=== PATIENT | male | born 1945 | race Caucasian/White ===

== ENCOUNTER 2018-03-14 15:27 | Inpatient (IN) | payer MEDICARE ==
[~2018-03-14 15:27] MED LIST: Aspirin 81 mg CHEW TAB* 81 MG TAB.CHEW PO ONE
[2018-03-14] MEDS ORDERED: NS 0.9% 1000 ML** 1,000 ML IV ONE (16:00)
[2018-03-14 16:18] LABS: ABS Basophils 0.1 10^3/ul (0-0.2); ABS Eosinophils 0.2 10^3/ul (0-0.6); ABS Lymphocytes 2.9 10^3/ul (1.0-4.8); ABS Monocytes 0.8 10^3/ul (0-0.8); ABS Neutrophils 6.8 10^3/ul (1.5-7.7); ABS Nucleated RBC 0 10^3/ul; Eosinophil % 2.1 %; Hematocrit 49 % (42-52); Hemoglobin 16.7 g/dl (14.0-18.0); Lymphocyte % 26.5 %; Mean Corpuscular HGB Conc 34 g/dl (31-36); Mean Corpuscular Hemoglobin 30 pg (27-31); Mean Corpuscular Volume 88 fL (80-94); Mean Platelet Volume 9.1 fL (7.4-10.4); Nucleated Red Blood Cells % 0; Platelet Count 258 10^3/ul (150-450); Red Blood Count 5.63 10^6/ul (4.00-5.40); Red Cell Distribution Width 14 % (10.5-15); White Blood Count 10.8 10^3/ul (3.5-10.8)
[2018-03-14 16:27] LABS: Activated Partial Thrombo Time 26.9 seconds (26.0-36.3); INR 0.78 (0.77-1.02)
[2018-03-14 16:30] LABS: Albumin 4.6 g/dL (3.2-5.2); Albumin/Globulin Ratio 1.5 (1-3); BUN/Creatinine Ratio 13.7 (8-20); Calcium 9.6 mg/dL (8.6-10.3); EGFR African American 74.1 (>60); EGFR Non-African American 61.3 (>60); HDL Cholesterol 60.7 mg/dL; Potassium 3.7 mmol/L (3.5-5.0); Total Bilirubin 0.7 mg/dL (0.2-1.0); Total Protein 7.6 g/dL (6.4-8.9)
--- NOTE | 2018-03-14 16:54 | ED ---
Neurological HPI - HPI Summary HPI Summary: This patient is a 72 year old male presenting to the emergency room with a cc of a possible TIA. He began having sclera bleeding in one half of his eye 3 days ago but yesterday the blood spread to the whole eye. Today at 1200 he began having a headache around this eye accompanied by expressive aphasia that lasted an hour. He did have a TIA in September of last year. He is still having a DOWNS that he rates 6/10 in severity. He reports all TIA sx have resolved and that at the time his mental state felt similar to his prior TIA. The only blood thinner he is on is 81 mg ASA daily. He does have DDD in C2, C3, and C4. - History of Current Complaint Chief Complaint: EDHeadache Stated Complaint: HEADACHE/ LT EYE REDNESS Time Seen by Provider: 03/14/18 15:54 Hx Obtained From: Patient Onset/Duration: Resolved Timing: Intermittent Episodes Lasting: - 1 hour Onset Severity: Moderate Current Severity: Mild Pain Intensity: 6 Pain Scale Used: 0-10 Numeric Syncope Context: Loss of Consciousness: No Associated Signs and Symptoms: Positive: Negative - fever. Negative: Recent Illness - Allergy/Home Medications Allergies/Adverse Reactions: Allergies Allergy/AdvReac Type Severity Reaction Status Date / Time No Known Allergies Allergy Verified 12/28/17 13:57 Home Medications: Home Medications Aspirin 81 mg CHEW TAB* [Aspirin Low Dose TAB*] 81 mg PO DAILY 03/14/18 [ History Confirmed 03/14/18] PMH/Surg Hx/FS Hx/Imm Hx Endocrine/Hematology History: Denies: Hx Diabetes, Hx Thyroid Disease Cardiovascular History: Denies: Hx Hypertension, Hx Pacemaker/ICD Respiratory History: Reports: Hx Asthma - USES INHALER, Hx Sleep Apnea, Other Respiratory Problems/Disorders - HX PNEUMONIA 6 TIMES PAST 8-10 YEARS Comment Only: Hx Chronic Obstructive Pulmonary Disease (COPD) - EXERCISED INDUCED PER PT GI History: Reports: Hx Diverticulosis - 1959 surgery, Hx Gastroesophageal Reflux Disease - takes Omeprazole Denies: Hx Ulcer History: Reports: Hx Benign Prostatic Hyperplasia, Hx Kidney Stones - LEFT ( 4 PIECES NOW) Denies: Hx Renal Disease Musculoskeletal History: Reports: Hx Arthritis, Hx Back Problems - Neck pain, current; Laser spine Surgery, resolved, Hx Tendonitis - RIGHT WRIST Sensory History: Reports: Hx Contacts or Glasses - GLASSES Denies: Hx Hearing Aid Opthamlomology History: Reports: Hx Contacts or Glasses - GLASSES Neurological History: Reports: Hx Headaches, Hx Transient Ischemic Attacks (TIA ) - 10/13: spent 3 nights at [facility] Comment Only: Other Neuro Impairments/Disorders - PAIN CLINIC PT Psychiatric History: Denies: Hx Panic Disorder, Hx Suicide Attempt - Cancer History Cancer Type, Location and Year: Skin cancer, forehead, resolved with Surgery Hx Chemotherapy: No Hx Radiation Therapy: No - Surgical History Surgery Procedure, Year, and Place: 1958 ILIECTOMY AND DIVERTICULITIS REPAIR, [place]. 1977 RIGHT KNEE-[facility],. 2006 LAMINECTOMY, [place]. 2006 EUA, TRANSANAL RECTAL POLYPECTOMY, [facility] [place]. 2008 LASER SPINE - LUMBAR REGION, [facility]. 2009 RIGHT TOTAL KNEE REPLACEMENT, [place]. 04/2011 LEFT WRIST GANGLION CYST EXCISION, [facility] [place]. 05/2011 CYSTOSCOPY RIGHT LITHOTRIPSY, STENT INSERTION, [facility] [place]. 03/2015 LEFT TOTAL KNEE REPLACEMENT, [place]. 11/27/2015 [place] LITHOTRIPSY LEFT URETERAL STENT INSERTION. 12/19/2015 LEFT CYSTOSCOPY , STONE EXTRACTION, LASER LITHOTRIPSY, LEFT STENT EXCHANGE, [facility] [place] Hx Anesthesia Reactions: Yes - 12/19/2015- SAID HE WAS ACTING "GOOFY" FOR HOURS AFTERWARDS Infectious Disease History: No Infectious Disease History: Reports: Hx of Known/Suspected MRSA - 2 years ago, unknown Denies: Hx Hepatitis, Hx Human Immunodeficiency Virus (HIV), History Other Infectious Disease, Traveled Outside the in Last 30 Days - Family History Known Family History: Positive: Hypertension Negative: Respiratory Disease - Social History Alcohol Use: Daily Alcohol Amount: 1-2daily Substance Use Type: Reports: None Smoking Status (MU): Never Smoked Tobacco Review of Systems Negative: Fever Positive: Other - see hpi Neurological: Other - aphasia Positive: Headache All Other Systems Reviewed And Are Negative: Yes Physical Exam - Summary Physical Exam Summary: Appearance: Well appearing, no pain distress Skin: warm, dry, reflects adequate perfusion Head/face: normal Eyes: EOMI, MANUEL, there is a subconjunctival hemorrhage on the left. ENT: normal Neck: supple, non-tender Respiratory: CTA, breath sounds present Cardiovascular: RRR, pulses symmetrical Abdomen: non-tender, soft Musculoskeletal: normal, strength/ROM intact Neuro: normal, sensory motor intact, A&Ox3 Triage Information Reviewed: Yes Vital Signs On Initial Exam: Initial Vitals Temp Pulse Resp BP Pulse Ox 97.8 F 73 18 162/105 97 03/14/18 15:33 03/14/18 15:33 03/14/18 15:33 03/14/18 15:33 03/14/18 15:33 Vital Signs Reviewed: Yes - Jasbir Coma Scale Best Eye Response: 4 - Spontaneous Best Motor Response: 6 - Obeys Commands Best Verbal Response: 5 - Oriented Coma Scale Total: 15 Diagnostics - Vital Signs Vital Signs Temp Pulse Resp BP Pulse Ox 03/14/18 16:17 73 12 172/99 94 03/14/18 16:15 80 19 97 03/14/18 16:10 172/105 03/14/18 15:33 97.8 F 73 18 162/105 97 - Laboratory Lab Results: Lab Results 03/14/18 03/14/18 03/14/18 Range/Units 15:55 15:55 15:55 WBC 10.8 (3.5-10.8) 10^3/ul RBC 5.63 H (4.00-5.40) 10^6/ul Hgb 16.7 (14.0-18.0) g/dl Hct 49 (42-52) % MCV 88 (80-94) fL MCH 30 (27-31) pg MCHC 34 (31-36) g/dl RDW 14 (10.5-15) % Plt Count 258 (150-450) 10^3/ul MPV 9.1 (7.4-10.4) fL Neut % (Auto) 63.1 % Lymph % (Auto) 26.5 % Charles % (Auto) 7.0 % Eos % (Auto) 2.1 % Baso % (Auto) 1.3 % Absolute Neuts (auto) 6.8 (1.5-7.7) 10^3/ul Absolute Lymphs (auto) 2.9 (1.0-4.8) 10^3/ul Absolute Monos (auto) 0.8 (0-0.8) 10^3/ul Absolute Eos (auto) 0.2 (0-0.6) 10^3/ul Absolute Basos (auto) 0.1 (0-0.2) 10^3/ul Absolute Nucleated RBC 0 10^3/ul Nucleated RBC % 0 INR (Anticoag Therapy) 0.78 (0.77-1.02) APTT 26.9 (26.0-36.3) seconds Sodium 138 (135-145) mmol/L Potassium 3.7 (3.5-5.0) mmol/L Chloride 102 (101-111) mmol/L Carbon Dioxide 29 (22-32) mmol/L Anion Gap 7 (2-11) mmol/L BUN 16 (6-24) mg/dL Creatinine 1.17 (0.67-1.17) mg/dL Est GFR ( Amer) 74.1 (>60) Est GFR (Non-Af Amer) 61.3 (>60) BUN/Creatinine Ratio 13.7 (8-20) Glucose 106 H (70-100) mg/dL POC Glucose (mg/dL) (70-100) mg/dL Lactic Acid (0.5-2.0) mmol/L Calcium 9.6 (8.6-10.3) mg/dL Total Bilirubin 0.70 (0.2-1.0) mg/dL AST 28 (13-39) U/L ALT 26 (7-52) U/L Alkaline Phosphatase 82 (34-104) U/L Troponin I 0.00 (<0.04) ng/mL Total Protein 7.6 (6.4-8.9) g/dL Albumin 4.6 (3.2-5.2) g/dL Globulin 3.0 (2-4) g/dL Albumin/Globulin Ratio 1.5 (1-3) Triglycerides 276 mg/dL Cholesterol 229 mg/dL LDL Cholesterol 113 mg/dL HDL Cholesterol 60.7 mg/dL 03/14/18 03/14/18 Range/Units 15:55 16:18 WBC (3.5-10.8) 10^3/ul RBC (4.00-5.40) 10^6/ul Hgb (14.0-18.0) g/dl Hct (42-52) % MCV (80-94) fL MCH (27-31) pg MCHC (31-36) g/dl RDW (10.5-15) % Plt Count (150-450) 10^3/ul MPV (7.4-10.4) fL Neut % (Auto) % Lymph % (Auto) % Charles % (Auto) % Eos % (Auto) % Baso % (Auto) % Absolute Neuts (auto) (1.5-7.7) 10^3/ul Absolute Lymphs (auto) (1.0-4.8) 10^3/ul Absolute Monos (auto) (0-0.8) 10^3/ul Absolute Eos (auto) (0-0.6) 10^3/ul Absolute Basos (auto) (0-0.2) 10^3/ul Absolute Nucleated RBC 10^3/ul Nucleated RBC % INR (Anticoag Therapy) (0.77-1.02) APTT (26.0-36.3) seconds Sodium (135-145) mmol/L Potassium (3.5-5.0) mmol/L Chloride (101-111) mmol/L Carbon Dioxide (22-32) mmol/L Anion Gap (2-11) mmol/L BUN (6-24) mg/dL Creatinine (0.67-1.17) mg/dL Est GFR ( Amer) (>60) Est GFR (Non-Af Amer) (>60) BUN/Creatinine Ratio (8-20) Glucose (70-100) mg/dL POC Glucose (mg/dL) 95 (70-100) mg/dL Lactic Acid 0.7 (0.5-2.0) mmol/L Calcium (8.6-10.3) mg/dL Total Bilirubin (0.2-1.0) mg/dL AST (13-39) U/L ALT (7-52) U/L Alkaline Phosphatase (34-104) U/L Troponin I (<0.04) ng/mL Total Protein (6.4-8.9) g/dL Albumin (3.2-5.2) g/dL Globulin (2-4) g/dL Albumin/Globulin Ratio (1-3) Triglycerides mg/dL Cholesterol mg/dL LDL Cholesterol mg/dL HDL Cholesterol mg/dL Result Diagrams: 03/14/18 15:55 03/14/18 15:55 Lab Statement: Any lab studies that have been ordered have been reviewed, and results considered in the medical decision making process. - Radiology CXR Radiology Interpretation Completed By: Radiologist Summary of Radiographic Findings: NO ACTIVE CARDIOPULMONARY DISEASE IS NOTED. ED physician has reviewed this radiology report - CT CT Head CT Interpretation Completed By: Radiologist Summary of CT Findings: No intracranial mass or hemorrhage is noted. ED physician has reviewed this radiology report CTA head CT Interpretation Completed By: Radiologist Summary of CT Findings: Minimal atherosclerosis without dissection, aneurysm, or flow-limiting lesion. in the extracranial carotid systems or vertebral arteries. ED physician has reviewed this radiology report - EKG 1623 Cardiac Rate: Other Rate EKG Rhythm: Atrial Fibrillation - at [address] Segment: Non-Specific NIH Scale - NIH Scale Level of Consciousness: Alert/Keenly Responsive Ask Patient the Month and His/Her Age: Both Correct Ask Pt to Open/Close Eyes and Tugboat Operator/Release Non-Paretic Hand: Both Correctly Best Gaze (Only Horizontal Eye Movement): Normal Visual Field Testing: No Visual Loss Facial Paresis-Pt to Smile & Close Eyes or Grimace Symmetry: Normal/Symmetrical Motor Function - Right Arm: No Drift-Holds 10 Seconds Motor Function - Left Arm: No Drift-Holds 10 Seconds Motor Function - Right Leg: No Drift-Holds 10 Seconds Motor Function - Left Leg: No Drift-Holds 10 Seconds Limb Ataxia-Must be out of Proportion to Weakness Present: Absent Sensory (Use Pinprick to Test Arms/Legs/Trunk/Face): Normal Best Language (Describe Picture, Name Items): No Aphasia Dysarthria (Read Several Words): Normal Extinction and Inattention: No Abnormality Total Score: 0 Course/Dx - Differential Dx Differential Diagnoses Neuro: Positive: Cerebrovascular Accident, Dysrhythmia, Intracranial Bleed, Transient Ischemic Attack - Diagnoses Provider Diagnoses: TIA (transient ischemic attack) - Physician Notifications Discussed Care Of Patient With: Kwabena Gr Time Discussed With Above Provider: 16:57 Instructed by Provider To: Admit As Inpatient - I discussed patient care with Dr. Salas as well and he suggested ordering a CTA prior to admission. - Critical Care Time Critical Care Time: 30-74 min Discharge - Sign-Out/Discharge Documenting (check all that apply): Patient Departure - admitted - Discharge Plan Condition: Fair Disposition: ADMITTED TO [facility] Referrals: Flako Bañuelos SEIS[facility] [employer]OTTER [Primary Care Provider] - - Billing Disposition and Condition Condition: FAIR Disposition: Admitted to [facility] - Attestation Statements Document Initiated by Scribe: Yes Documenting Scribe: Perez Sanders Provider For Whom Scribe is Documenting (Include Credential): Pablito Dowd Attestation: IPerez , scribed for Pablito Medina MD on 03/14/18 at 2011. Scribe Documentation Reviewed: Yes Provider Attestation: The documentation as recorded by the Perez dowd accurately reflects the service I personally performed and the decisions made by Pablito almanza MD Status of Scribe Document: Viewed
[2018-03-14] MEDS ORDERED: Iohexol 350* (CONTRAST) 500 ML MDV IV ONE (17:04)
[2018-03-14 18:03] LABS: Urine Appearance Clear; Urine Bilirubin Negative (Negative); Urine Blood Negative (Negative); Urine Color Yellow; Urine Glucose Negative (Negative); Urine Ketones Negative (Negative); Urine Nitrite Negative (Negative); Urine Protein Negative (Negative); Urine Urobilinogen Negative (Negative)
[2018-03-14] MEDS ORDERED: Acetaminophen TAB* 325 MG PO PRN (19:37)
[2018-03-14] MEDS ORDERED: Ondansetron INJ* 2 MG/ML VIAL IV PRN (19:37)
[2018-03-14] MEDS ORDERED: Naproxen TAB* 250 MG PO ONE (19:55)
[2018-03-14] MEDS ORDERED: Aspirin 81 mg CHEW TAB* 81 MG TAB.CHEW PO ONE (20:00)
[2018-03-14] MEDS ORDERED: Aspirin 81 mg CHEW TAB* 81 MG TAB.CHEW PO SCH (20:00)
[2018-03-14] MEDS: Heparin VIAL(*) 5000 UNITS/ML VIAL (FIVE THOUSAND) SUBCUT SCH (20:44)
--- NOTE | 2018-03-15 00:04 | HP ---
CC: Dr. Williamson; Dr. Salas * HISTORY AND PHYSICAL: DATE OF ADMISSION: 03/14/18 PRIMARY CARE PROVIDER: Dr. Williamson. OTHER PROVIDERS: Dr. Salas, neurology in consultation. ATTENDING PHYSICIAN: Waleska Dyson DO * (dictated by Connie Ledesma, CLOTILDE) CHIEF COMPLAINT: 1. Aphasia. 2. Headache. HISTORY OF PRESENT ILLNESS: Mr. Torres is a 72-year-old male with a past medical history significant for possible TIA in September 2017, DDD, asthma, sleep apnea, COPD, GERD, BPH, kidney stones, arthritis; who presented to the emergency department today with complaints of an episode of aphasia and left- sided headache. While in the emergency room, the patient was noted to be hypertensive with a blood pressure of 172/99. In addition, the patient had a brain CT, which reveals no intracranial mass or hemorrhage. He also had CTA of the head and neck, which showed no dissection, aneurysm, or flow limiting lesion. He was noted to have minimal atherosclerosis without dissection, aneurysm, or flow limiting lesion in the extracranial carotid systems of vertebral arteries. He had a CBC, which was unremarkable. He had a coag panel , which was unremarkable. He also had a CMP, which was unremarkable other than a glucose of 106. He also had a troponin that was 0.00 and a lipid panel. Due to the patient's history of TIA and presenting complaints, the hospitalists were asked to evaluate for admission. On my assessment of the patient, he reports that about 3 days ago, he started noticing blood in the sclera of his left eye after straining to have a bowel movement. He reports this happens occasionally. He believes that the bleeding in the sclera became worse after shovelling also. Then, today around 11:30, he was speaking to friends at [employer] regarding a friend who was hospitalized and he found himself unable to articulate and find the appropriate words. He was able to understand the others completely, but could not communicate effectively. He then went home to his who mentioned she also noted this inability to find correct words with ease. He was able to say some things, but finding the right words were difficult. and the patient deny any noticeable focal deficits including garbled speech, unilateral weakness, unsteady gait, asymmetrical smile, or gaze. The patient reports that this inability to find words lasted approximately an hour, and near the end that hour , he started to have a severe headache on the left side of his head around his left eye and in the orbit of his eye. He reports the pain was 7/10. Due to this headache and a previous history of a similar episode, the patient presented to the emergency department. As per the previous history of similar episode, the patient reports that in September 2017, he was driving home from the [employer] by himself when he found it difficult to drive and manage the air conditioning in his car. He continues to drive without event, but as he became more concerned about his symptoms, he stopped at a [employer] and told the staff to call 911. He said it did take him some time to find the words "call 911," which is similar to this recent episode. He reports that he was taken by ambulance from [facility] to [facility] for further evaluation. He states that multiple tests were completed without finding. He reports that he was discharged and told it might have been a TIA. From the limited records I can see in [facility], there is mention of MRI, echo, EEG that were unremarkable. I have requested records from [facility]. Due to the patient's history of a similar episode and current symptomatology, he will be admitted overnight for further observation on telemetry. PAST MEDICAL HISTORY: 1. TIA in September 2017. 2. Degenerative disk disease. 3. Asthma. 4. Sleep apnea. 5. Recurrent pneumonia. 6. COPD exacerbation (with exercise). 7. GERD. 8. BPH. 9. Kidney stones. 10. Arthritis. PAST SURGICAL HISTORY: 1. Ileectomy and diverticulitis repair. 2. Right knee medial meniscus tear. 3. Laminectomy. 4. Transrectal polypectomy. 5. Laser spine lumbar region. 6. Total knee replacement, right. 7. Left wrist ganglion cyst excision. 8. Cystoscopy, right lithotripsy. 9. Left total knee replacement. 10. Shock wave lithotripsy, left ureteral stent insertion. 11. Left cystoscopy, stone extraction, laser lithotripsy, left stent exchange. ALLERGIES: No known drug allergies. FAMILY HISTORY: The patient's family history is positive for hypertension. SOCIAL HISTORY: The patient denies smoking. The patient reports 1 to 2 drinks daily. The patient denies drugs. The patient lives at home with his and is independent of ADLs. REVIEW OF SYSTEMS: The patient reports left-sided headache, which is now more in temporal region than around the eye. He rates his headache as 6/10. The patient denies difficulty finding words. The patient denies dizziness. The patient denies visual changes. The patient denies weakness or focal deficits. The patient denies chest pain, shortness of breath, nausea, vomiting, diarrhea, fever, chills. A 14-point review of systems was completed and all others were negative. PHYSICAL EXAMINATION GENERAL: Mr. Torres is a well-developed man, sitting in bed, in no acute distress. Appears his stated age. VITAL SIGNS: BP 166/93, O2 saturation 98% on room air, RR 16, HR 67, temp 97.8. HEENT: Visual espinal grossly intact. PERRLA. EOMs intact. Right sclera within normal limits. Left sclera is noted to have hemorrhage. Hearing is grossly intact. External ears and nose within normal limits. Oral mucosa is moist without lesions. Tonsils without erythema or exudate. Pharynx is clear. NECK: Limited range of motion due to pain. The patient is receiving injections for this pain. No lymphadenopathy. RESPIRATORY: Symmetrical chest expansion. No accessory muscle use. LUNGS: Clear to auscultation. No rhonchi, wheezes, or rubs. CV: Regular rate and rhythm. S1, S2 present. No murmurs, rubs, or gallops. ABDOMEN: Soft, nontender to palpation. Bowel sounds are normoactive. EXTREMITIES: Skin is warm and smooth bilaterally. No edema. No clubbing or cyanosis. Pedal pulses 2+ bilaterally. MUSCULOSKELETAL: Full range of motion. No deformities. NEURO: Awake, alert, and oriented x4. Cranial nerves II through XII intact. Moves all extremities well. Motor strength is 5/5 in upper and lower extremities bilaterally. No drift noted. Coordination intact. Sensory intact. SKIN: Grossly intact without lesions. DIAGNOSTIC STUDIES/LABORATORY DATA: WBC 10.8, hemoglobin 16.7, hematocrit 49, platelets 258. INR 0.78. APTT 26.9. Sodium 138, potassium 3.7, chloride 102, carbon dioxide 29, BUN 16, creatinine 1.17, glucose 106. Lactic acid 0.7. Calcium 9.6. Total bilirubin 0.70, AST 28, ALT 26, alk phos 82. Troponin 0.00. Triglycerides 276, cholesterol 229, LDL is 113, HDL is 60.7. ASSESSMENT AND PLAN: Mr. Torrse is a 72-year-old male with a past medical history significant for transient ischemic attack, degenerative disk disease, asthma, sleep apnea, chronic obstructive pulmonary disease, gastroesophageal reflux disease, BPH, kidney stones; who presented to the emergency department today with an hour-long episode of aphasia and subsequent headache. Due to the patient's history and presenting concerns, he will be admitted to observation for: 1. Expressive aphasia: On the differential includes a TIA. An MRI has been ordered for the morning. The patient has been given 81 mg of aspirin here in the ER, as he has already taken 3 baby aspirin prior to arrival. The patient will also receive a full dose of aspirin tomorrow. The patient will have neuro checks q.2 hours. The patient will be placed on telemetry. The patient passed in our swallowing eval here in the emergency department. As previously mentioned, the patient had a CTA and a brain CT, which were unremarkable. Neurology has been consulted and we appreciate their input and they will be seeing the patient tomorrow. 2. Headache: Once again on the differential includes TIA. See plans above. In addition, a sed rate has been ordered to evaluate for temporal arteritis. The patient does have some mild tenderness to palpation on the left temporal artery. 3. Degenerative disk disease: The patient can be provided pain meds as needed. He is undergoing injections in his spine. 4. Asthma. The patient will have albuterol inhaler as needed. 5. Sleep apnea. I will ask the patient's to bring his CPAP from home. 6. Chronic obstructive pulmonary disease. The patient is not in exacerbation. I will reorder his Dulera as same from home. 7. Gastroesophageal reflux disease: The patient does not have currently have symptoms of GERD, but I will reorder his omeprazole as same as at home. 8. Benign prostatic hypertrophy. The patient does take Flomax at home, and we will reorder that while he is hospitalized. 9. Kidney stones: He is not currently experiencing symptoms of a kidney stone. 10. Arthritis. We will monitor need for pain medication. Otherwise, he is to follow up with his primary care physician. 11. FEN: As previously mentioned, the patient did pass swallow eval; therefore , he would be given a regular diet. 12. Code status: The patient is a full code. 13. DVT prophylaxis: Based on the DVT risk assessment, the patient is moderate risk. I will order subcu heparin q.12 hours. TIME SPENT: Approximately 60 minutes were spent on this admission; greater than half time was spent [id number] with the patient and obtaining my history and performing physical exam and reviewing the plan of care. The case has been reviewed by my attending, Dr. Dyson, who agrees with my plan. CONNIE LEDESMA, TRANSITIONAL STUDIES INSTRUCTOR [id number]/CPS #: [id number]
[2018-03-15] MEDS: Mometasone/Formoter 100/5 MDI INH SCH ×3 (00:13→20:46)
[2018-03-15 06:22] LABS: ABS Basophils 0.1 10^3/ul (0-0.2); ABS Eosinophils 0.3 10^3/ul (0-0.6); ABS Lymphocytes 3.3 10^3/ul (1.0-4.8); ABS Monocytes 0.7 10^3/ul (0-0.8); ABS Neutrophils 4.9 10^3/ul (1.5-7.7); ABS Nucleated RBC 0 10^3/ul; Eosinophil % 3.1 %; Hematocrit 44 % (42-52); Lymphocyte % 35.4 %; Mean Corpuscular HGB Conc 34 g/dl (31-36); Mean Corpuscular Hemoglobin 30 pg (27-31); Mean Corpuscular Volume 88 fL (80-94); Mean Platelet Volume 9.1 fL (7.4-10.4); Nucleated Red Blood Cells % 0.1; Platelet Count 208 10^3/ul (150-450); Red Blood Count 5.07 10^6/ul (4.00-5.40); Red Cell Distribution Width 14 % (10.5-15); White Blood Count 9.2 10^3/ul (3.5-10.8)
[2018-03-15 06:46] LABS: BUN/Creatinine Ratio 14.5 (8-20); Calcium 8.8 mg/dL (8.6-10.3); EGFR African American 79.6 (>60); EGFR Non-African American 65.8 (>60); HDL Cholesterol 47.1 mg/dL
[2018-03-15] MEDS: Tamsulosin CAP* 0.4 MG PO SCH (08:30)
[2018-03-15] MEDS: Heparin VIAL(*) 5000 UNITS/ML VIAL (FIVE THOUSAND) SUBCUT SCH ×2 (08:30→21:56)
[2018-03-15] MEDS: Finasteride TAB* 5 MG PO SCH (08:30)
[2018-03-15] MEDS: Pantoprazole TAB * 40 MG TAB PO SCH (08:31)
[2018-03-15] MEDS ORDERED: Aspirin TAB* 325 MG PO ONE (09:00)
--- NOTE | 2018-03-15 14:39 | PN ---
Subjective Date of Service: 03/15/18 Interval History: Pt states that he is feeling better. Headache is gone. Aphasia lasted approximately 1 hour yesterday, and has not returned. He states that a similar episode occurred in September, for which he had a full workup in [place]. He denies CP, SOB, cooper, vision changes, abd pain, n/v/d/c, LE pain or swelling, calf tenderness. He does c/o neck pain, as he has DDD in multiple cervical vertebrae; he is seeing Dr. Randall outpatient for this. Objective Active Medications: Acetaminophen (Tylenol Tab*) 650 mg PO Q4H PRN Finasteride (Proscar Tab*) 5 mg PO QAM [place] Heparin Sodium (Porcine) (Heparin Vial(*)) 5,000 units SUBCUT Q12HR [place] Mometasone Furoate/Formoterol Fumar (Dulera 100/5 Mdi*) 2 puff INH BID [place] Ondansetron HCl (Zofran Inj*) 4 mg IV Q4H PRN Pantoprazole Sodium (Protonix Tab*) 40 mg PO DAILY S[place] Tamsulosin HCl (Flomax Cap*) 0.4 mg PO QAM [place] Vital Signs: Temp Pulse Resp BP Pulse Ox 98.4 F 70 20 141/87 96 03/15/18 11:58 03/15/18 11:58 03/15/18 11:58 03/15/18 11:58 03/15/18 11:58 Oxygen Devices in Use Now: None Appearance: Pt is sitting up in bed. He appears well and is in no acute distress. Eyes: No Scleral Icterus - L eye with scleral hemorrhage , PERRLA Ears/Nose/Mouth/Throat: NL Teeth, Lips, Gums, Mucous Membranes Moist, - - B/l temporal area nontender to palpation. Without sinus tenderness. Neck: NL Appearance and Movements; NL JVP, Trachea Midline, No Thyroid Enlargement, Masses Respiratory: Symmetrical Chest Expansion and Respiratory Effort, Clear to Auscultation Cardiovascular: NL Sounds; No Murmurs; No JVD, RRR, No Edema Abdominal: NL Sounds; No Tenderness; No Distention, No Hepatosplenomegaly Neurological: Alert and Oriented x 3 Result Diagrams: 03/15/18 05:46 03/15/18 05:46 Additional Lab and Data: Lab Results 0103/14/18 03/14/18 Range/Units 15:55 15:55 15:55 WBC 10.8 (3.5-10.8) 10^3/ul RBC 5.63 H (4.00-5.40) 10^6/ul Hgb 16.7 (14.0-18.0) g/dl Hct 49 (42-52) % MCV 88 (80-94) fL MCH 30 (27-31) pg MCHC 34 (31-36) g/dl RDW 14 (10.5-15) % Plt Count 258 (150-450) 10^3/ul MPV 9.1 (7.4-10.4) fL Neut % (Auto) 63.1 % Lymph % (Auto) 26.5 % [place] % (Auto) 7.0 % Eos % (Auto) 2.1 % Baso % (Auto) 1.3 % Absolute Neuts (auto) 6.8 (1.5-7.7) 10^3/ul Absolute Lymphs (auto) 2.9 (1.0-4.8) 10^3/ul Absolute Monos (auto) 0.8 (0-0.8) 10^3/ul Absolute Eos (auto) 0.2 (0-0.6) 10^3/ul Absolute Basos (auto) 0.1 (0-0.2) 10^3/ul Absolute Nucleated RBC 0 10^3/ul Nucleated RBC % 0 INR (Anticoag Therapy) 0.78 (0.77-1.02) APTT 26.9 (26.0-36.3) seconds Sodium 138 (135-145) mmol/L Potassium 3.7 (3.5-5.0) mmol/L Chloride 102 (101-111) mmol/L Carbon Dioxide 29 (22-32) mmol/L Anion Gap 7 (2-11) mmol/L BUN 16 (6-24) mg/dL Creatinine 1.17 (0.67-1.17) mg/dL Est GFR ( Amer) 74.1 (>60) Est GFR (Non-Af Amer) 61.3 (>60) BUN/Creatinine Ratio 13.7 (8-20) Glucose 106 H (70-100) mg/dL POC Glucose (mg/dL) (70-100) mg/dL Lactic Acid (0.5-2.0) mmol/L Calcium 9.6 (8.6-10.3) mg/dL Total Bilirubin 0.70 (0.2-1.0) mg/dL AST 28 (13-39) U/L ALT 26 (7-52) U/L Alkaline Phosphatase 82 (34-104) U/L Troponin I 0.00 (<0.04) ng/mL Total Protein 7.6 (6.4-8.9) g/dL Albumin 4.6 (3.2-5.2) g/dL Globulin 3.0 (2-4) g/dL Albumin/Globulin Ratio 1.5 (1-3) Triglycerides 276 mg/dL Cholesterol 229 mg/dL LDL Cholesterol 113 mg/dL HDL Cholesterol 60.7 mg/dL 03/14/18 03/14/18 Range/Units 15:55 16:18 WBC (3.5-10.8) 10^3/ul RBC (4.00-5.40) 10^6/ul Hgb (14.0-18.0) g/dl Hct (42-52) % MCV (80-94) fL MCH (27-31) pg MCHC (31-36) g/dl RDW (10.5-15) % Plt Count (150-450) 10^3/ul MPV (7.4-10.4) fL Neut % (Auto) % Lymph % (Auto) % Sherman % (Auto) % Eos % (Auto) % Baso % (Auto) % Absolute Neuts (auto) (1.5-7.7) 10^3/ul Absolute Lymphs (auto) (1.0-4.8) 10^3/ul Absolute Monos (auto) (0-0.8) 10^3/ul Absolute Eos (auto) (0-0.6) 10^3/ul Absolute Basos (auto) (0-0.2) 10^3/ul Absolute Nucleated RBC 10^3/ul Nucleated RBC % INR (Anticoag Therapy) (0.77-1.02) APTT (26.0-36.3) seconds Sodium (135-145) mmol/L Potassium (3.5-5.0) mmol/L Chloride (101-111) mmol/L Carbon Dioxide (22-32) mmol/L Anion Gap (2-11) mmol/L BUN (6-24) mg/dL Creatinine (0.67-1.17) mg/dL Est GFR ( Amer) (>60) Est GFR (Non-Af Amer) (>60) BUN/Creatinine Ratio (8-20) Glucose (70-100) mg/dL POC Glucose (mg/dL) 95 (70-100) mg/dL Lactic Acid 0.7 (0.5-2.0) mmol/L Calcium (8.6-10.3) mg/dL Total Bilirubin (0.2-1.0) mg/dL AST (13-39) U/L ALT (7-52) U/L Alkaline Phosphatase (34-104) U/L Troponin I (<0.04) ng/mL Total Protein (6.4-8.9) g/dL Albumin (3.2-5.2) g/dL Globulin (2-4) g/dL Albumin/Globulin Ratio (1-3) Triglycerides mg/dL Cholesterol mg/dL LDL Cholesterol mg/dL HDL Cholesterol mg/dL Microbiology and Other Data: Microbiology 03/14/18 22:25 Nasal Screen MRSA (PCR) - Final Nasal Mrsa Detected Assess/Plan/Problems-Billing Assessment: Pt is a 72yom with PMHx TIA in 2018, DDD, asthma, KADEEM, COPD, GERD, BPH, kidney stones, and arthritis. He presented to the ER with aphasia and headache. - Patient Problems (1) Aphasia Comment: -Currently resolved; pt received ASA 325 today; tele shows NSR -Neurology consulted (2) Headache Comment: -Resolved; temporal area nontender to palpation; ESR WNL (3) Chronic obstructive pulmonary disease Comment: -Currently not in exacerbation -Continue Dulera (4) Benign prostatic hyperplasia Comment: -Continue tamsulosin, finasteride (5) Gastroesophageal reflux disease Comment: -Continue Pantoprazole (6) DVT prophylaxis Comment: -Continue Heparin Status and Disposition: Observation. Discharge once medically stable.
--- NOTE | 2018-03-15 20:35 | CONS ---
CONSULTATION REPORT: DATE OF CONSULT: 03/15/18 PATIENT OF: NATHAN Bolivar, and Dr. Williamson. HISTORY OF PRESENT ILLNESS: This is a 72-year-old right-handed man who presents for an episode of aphasia occurring yesterday at about 11:30. In the ER, he was asymptomatic. He had a prior episode in September 2017 of an aphasic episode that was described as a TIA, but his speech has not returned completely back to normal. Although people speaking to him cannot tell the difference, he still notes an issue. He has had no stroke. Of note, when he had knee surgery [place] 4 years ago, he was told he had atrial fibrillation, but he never saw a pst specialist for this. He has no numbness or weakness. PAST MEDICAL HISTORY: He has a history of degenerative disk disease, asthma, sleep apnea, recurrent pneumonia, COPD with exercise, GERD, BPH, kidney stones, arthritis. PAST SURGICAL HISTORY: He is status post diverticulitis repair, right knee meniscus repair, laminectomy, transrectal polypectomy, laser spine lumbar region surgery, total knee replacement to the right side, left wrist ganglion cyst excision, left knee replacement, shockwave lithotripsy, left cystoscopy. ALLERGIES: He has no known drug allergies. FAMILY HISTORY: There iss family history of hypertension. SOCIAL HISTORY: He drinks 1 to 2 drinks daily. He denies smoking or drugs. He lives at home with his . REVIEW OF SYSTEMS: Negative other than a 5-6/10 headache yesterday, it is better today. PHYSICAL EXAM: On exam, temperature 98.3, pulse 77, respirations 16, blood pressure 139/82. He is alert and oriented, with normal speech and comprehension , normal naming. Cranial nerves II through XII are intact. Fundi are benign. He had left scleral hemorrhage. Motor exam revealed normal tone, strength, coordination. Negative pronator drift. Sensation intact to light touch. Reflexes 2 and equal, downgoing toes. Chest: Clear. Cardiovascular: Regular rate and rhythm. Abdomen: Soft, with positive bowel sounds. DIAGNOSTIC STUDIES/LAB DATA: Reviewed his MRI scan, which showed no acute stroke, but it did show some small vessel ischemic disease. He also had a CTA and a CT scan. The CTA showed minimal atherosclerosis. His EKG showed atrial fibrillation. Labs include normal CBC, sed rate, normal INR, PTT, normal CMP other than glucose of 106. LDL fasting was 94. IMPRESSION AND PLAN: Arnaldo has atrial fibrillation associated with 2 episodes of aphasia and he should be anticoagulated, not on antiplatelet agents. It is possible he has small vessel ischemic disease and he may have some degree of atherosclerosis, and I would also, given the stroke, have him on a statin with a target LDL of 70. Have it called into [facility] to discuss. Thank you for sharing his case. [id number]/[facility] #: [id number] ADDENDUM: the ekg here read as atrial fib was read as artefact and I have discussed with hospitalists adn a loop recorder has been placed to evaluate for afib. We could not get records documenting the prior possible afib which was not seen by a pst specialist. THIERNO
--- NOTE | 2018-03-15 22:49 | PN ---
Hospitalist Progress Note Date of Service: 03/15/[address] Salas that he was told he had atrial fibrillation approx 4 yrs ago when being seen at [facility]. I have requested records from [facility] from this time frame. Additionally, there was an EKG completed in the ED that read Atrial Fibrillation, but was possibly due to artifact. Repeat EKG was sinus rhythm. Patient is on tele and per nurses remains in sinus rhythm. Cont tele. Given this information patient may benefit from a Loop Recorder and possible anticoagulation therapy.
--- NOTE | 2018-03-16 08:07 | PN ---
Subjective Date of Service: 03/16/18 Interval History: Pt is feeling well. Pt admits to having a "flutter" in his chest from time to time that lasts minutes, but has not had this recently. Plan for loop recorder and bubble echo, then discharge today. He denies CP, SOB, palpitations, headache, cough, fever, abdominal pain, n/v/d/c, extremity pain or weakness. Objective Active Medications: Acetaminophen (Tylenol Tab*) 650 mg PO Q4H PRN Aspirin (Aspirin Ec Tab*) 81 mg PO DAILY SASKIA Finasteride (Proscar Tab*) 5 mg PO QAM [place] Heparin Sodium (Porcine) (Heparin Vial(*)) 5,000 units SUBCUT Q12HR [place] Mometasone Furoate/Formoterol Fumar (Dulera 100/5 Mdi*) 2 puff INH BID [place] Ondansetron HCl (Zofran Inj*) 4 mg IV Q4H PRN Pantoprazole Sodium (Protonix Tab*) 40 mg PO DAILY [place] Tamsulosin HCl (Flomax Cap*) 0.4 mg PO QAM [facility] Vital Signs: Temp Pulse Resp BP Pulse Ox 97.6 F 65 16 148/89 98 03/16/18 03:56 03/16/18 03:56 03/16/18 03:56 03/16/18 03:56 03/16/18 03:56 Oxygen Devices in Use Now: None Appearance: Pt is in room ambulating. He sits up in bed for discussion and exam. He appears well and is in no acute distress. Eyes: No Scleral Icterus - L scleral hemorrhage, PERRLA Ears/Nose/Mouth/Throat: NL Teeth, Lips, Gums, Clear Oropharnyx, Mucous Membranes Moist Neck: NL Appearance and Movements; NL JVP, Trachea Midline, No Thyroid Enlargement, Masses Respiratory: Symmetrical Chest Expansion and Respiratory Effort, Clear to Auscultation Cardiovascular: NL Sounds; No Murmurs; No JVD, RRR, No Edema Abdominal: NL Sounds; No Tenderness; No Distention, No Hepatosplenomegaly Neurological: Alert and Oriented x 3, NL Gait Result Diagrams: 03/15/18 05:46 03/15/18 05:46 Additional Lab and Data: Lab Results 03/14/18 03/14/18 03/14/18 Range/Units 15:55 15:55 15:55 WBC 10.8 (3.5-10.8) 10^3/ul RBC 5.63 H (4.00-5.40) 10^6/ul Hgb 16.7 (14.0-18.0) g/dl Hct 49 (42-52) % MCV 88 (80-94) fL MCH 30 (27-31) pg MCHC 34 (31-36) g/dl RDW 14 (10.5-15) % Plt Count 258 (150-450) 10^3/ul MPV 9.1 (7.4-10.4) fL Neut % (Auto) 63.1 % Lymph % (Auto) 26.5 % [place] % (Auto) 7.0 % Eos % (Auto) 2.1 % Baso % (Auto) 1.3 % Absolute Neuts (auto) 6.8 (1.5-7.7) 10^3/ul Absolute Lymphs (auto) 2.9 (1.0-4.8) 10^3/ul Absolute Monos (auto) 0.8 (0-0.8) 10^3/ul Absolute Eos (auto) 0.2 (0-0.6) 10^3/ul Absolute Basos (auto) 0.1 (0-0.2) 10^3/ul Absolute Nucleated RBC 0 10^3/ul Nucleated RBC % 0 INR (Anticoag Therapy) 0.78 (0.77-1.02) APTT 26.9 (26.0-36.3) seconds Sodium 138 (135-145) mmol/L Potassium 3.7 (3.5-5.0) mmol/L Chloride 102 (101-111) mmol/L Carbon Dioxide 29 (22-32) mmol/L Anion Gap 7 (2-11) mmol/L BUN 16 (6-24) mg/dL Creatinine 1.17 (0.67-1.17) mg/dL Est GFR ( Amer) 74.1 (>60) Est GFR (Non-Af Amer) 61.3 (>60) BUN/Creatinine Ratio 13.7 (8-20) Glucose 106 H (70-100) mg/dL POC Glucose (mg/dL) (70-100) mg/dL Lactic Acid (0.5-2.0) mmol/L Calcium 9.6 (8.6-10.3) mg/dL Total Bilirubin 0.70 (0.2-1.0) mg/dL AST 28 (13-39) U/L ALT 26 (7-52) U/L Alkaline Phosphatase 82 (34-104) U/L Troponin I 0.00 (<0.04) ng/mL Total Protein 7.6 (6.4-8.9) g/dL Albumin 4.6 (3.2-5.2) g/dL Globulin 3.0 (2-4) g/dL Albumin/Globulin Ratio 1.5 (1-3) Triglycerides 276 mg/dL Cholesterol 229 mg/dL LDL Cholesterol 113 mg/dL HDL Cholesterol 60.7 mg/dL 03/14/18 03/14/18 Range/Units 15:55 16:18 WBC (3.5-10.8) 10^3/ul RBC (4.00-5.40) 10^6/ul Hgb (14.0-18.0) g/dl Hct (42-52) % MCV (80-94) fL MCH (27-31) pg MCHC (31-36) g/dl RDW (10.5-15) % Plt Count (150-450) 10^3/ul MPV (7.4-10.4) fL Neut % (Auto) % Lymph % (Auto) % [place] % (Auto) % Eos % (Auto) % Baso % (Auto) % Absolute Neuts (auto) (1.5-7.7) 10^3/ul Absolute Lymphs (auto) (1.0-4.8) 10^3/ul Absolute Monos (auto) (0-0.8) 10^3/ul Absolute Eos (auto) (0-0.6) 10^3/ul Absolute Basos (auto) (0-0.2) 10^3/ul Absolute Nucleated RBC 10^3/ul Nucleated RBC % INR (Anticoag Therapy) (0.77-1.02) APTT (26.0-36.3) seconds Sodium (135-145) mmol/L Potassium (3.5-5.0) mmol/L Chloride (101-111) mmol/L Carbon Dioxide (22-32) mmol/L Anion Gap (2-11) mmol/L BUN (6-24) mg/dL Creatinine (0.67-1.17) mg/dL Est GFR ( Amer) (>60) Est GFR (Non-Af Amer) (>60) BUN/Creatinine Ratio (8-20) Glucose (70-100) mg/dL POC Glucose (mg/dL) 95 (70-100) mg/dL Lactic Acid 0.7 (0.5-2.0) mmol/L Calcium (8.6-10.3) mg/dL Total Bilirubin (0.2-1.0) mg/dL AST (13-39) U/L ALT (7-52) U/L Alkaline Phosphatase (34-104) U/L Troponin I (<0.04) ng/mL Total Protein (6.4-8.9) g/dL Albumin (3.2-5.2) g/dL Globulin (2-4) g/dL Albumin/Globulin Ratio (1-3) Triglycerides mg/dL Cholesterol mg/dL LDL Cholesterol mg/dL HDL Cholesterol mg/dL Microbiology and Other Data: Microbiology 03/14/18 22:25 Nasal Screen MRSA (PCR) - Final Nasal Mrsa Detected Assess/Plan/Problems-Billing Assessment: Pt is a 72yom with PMHx TIA in 2018, DDD, asthma, KADEEM, COPD, GERD, BPH, kidney stones, and arthritis. He presented to the ER with aphasia and headache. - Patient Problems (1) Aphasia Comment: -Tele shows NSR since admission. EKG from ER shows possible AF, athough it is likely artifact, as it is regular rate and rhythm with P waves present. -ECHO with bubble, loop recordered ordered for today -Start atorvastatin; start Plavix 75; discontinue asa 81 (2) Headache Comment: -Resolved; temporal area nontender to palpation; ESR WNL (3) Chronic obstructive pulmonary disease Comment: -Currently not in exacerbation -Continue Dulera (4) Benign prostatic hyperplasia Comment: -Continue tamsulosin, finasteride (5) Gastroesophageal reflux disease Comment: -Continue Pantoprazole (6) DVT prophylaxis Comment: -Continue Heparin Status and Disposition: Observation. Discharge once medically stable.
[2018-03-16] MEDS: Mometasone/Formoter 100/5 MDI INH SCH (08:42)
[2018-03-16] MEDS ORDERED: Aspirin EC TAB* 81 MG TAB.EC PO SCH (09:00)
[2018-03-16] MEDS: Pantoprazole TAB * 40 MG TAB PO SCH (10:08)
[2018-03-16] MEDS: Tamsulosin CAP* 0.4 MG PO SCH (10:08)
[2018-03-16] MEDS: Finasteride TAB* 5 MG PO SCH (10:08)
[2018-03-16] MEDS: Heparin VIAL(*) 5000 UNITS/ML VIAL (FIVE THOUSAND) SUBCUT SCH (10:08)
[2018-03-16] MEDS ORDERED: Lidocaine 1% INJ* 10 MG/ML 30 ML SDV ONE (12:40)
--- NOTE | 2018-03-16 16:05 | ECHO ---
Patient: JULIA PATEL [facility] Rec#: [id number] : 1945 Date: 03/16/2018 Age: 72y Height: 175 cm / 68.9 in Weight: 72 kg / 158.7 lbs Sex: M BSA: 1.87 Room#: [facility] Admit Date#: 03/14/2018 Type: Inpatient Referring: Celsa David Reading: Tiburcio Lujan MD [employer] Officer: Thao Castillo RDCS,RDMS CC: Jesica Williamson MD Transthoracic Echocardiogram Indication: TIA BP: 142/89 HR: 77 Rhythm: NSR Findings History: TIA, COPD, Afib, KADEEM Technical Comments: The study quality is fair. Left Ventricle: The left ventricular chamber size is normal. Mild concentric left ventricular hypertrophy is observed. Basal interventricular septum shows moderate thickening. Global left ventricular wall motion and contractility are within normal limits. There is normal left ventricular systolic function. The estimated ejection fraction is 55-60%. There is an E to A reversal in the mitral valve flow pattern suggestive of diastolic dysfunction. Left Atrium: The left atrium is slightly dilated. Right Ventricle: The right ventricular chamber size and systolic function are within normal limits. Right Atrium: The right atrial cavity size is normal. The bubble study is negative. A patent foramen ovale is not demonstrated with color Doppler and agitated contrast. Aortic Valve: The aortic valve is trileaflet. Systolic excursion of the aortic valve is normal. There is no evidence of aortic regurgitation. There is no evidence of aortic stenosis. Mitral Valve: The mitral valve leaflets appear normal. There is a trace of mitral regurgitation. There is no evidence of mitral stenosis. Tricuspid Valve: The tricuspid valve leaflets are normal. There is trace to mild tricuspid regurgitation. No pulmonary hypertension is noted. Pulmonic Valve: The pulmonic valve appears normal. There is a trace pulmonic regurgitation. Pericardium: There is no significant pericardial effusion. Aorta: The aortic root appears normal. There is no dilatation of the aortic arch. Pulmonary Artery: The main pulmonary artery is not well visualized. Venous: The inferior vena cava appears normal in size. There is a greater than 50% respiratory change in the inferior vena cava dimension. Summary: There was not any prior study for comparison. Conclusions Mild concentric left ventricular hypertrophy is observed. Global left ventricular wall motion and contractility are within normal limits. There is normal left ventricular systolic function. The estimated ejection fraction is 55-60%. A patent foramen ovale is not demonstrated with color Doppler and agitated contrast. There is no evidence of aortic stenosis. There is a trace of mitral regurgitation. There is trace to mild tricuspid regurgitation. There is no significant pericardial effusion. Measurements Name Value Normal Range RVIDd (AP) 2D 2.7 cm (0.9 - 2.6) RVDdMajor (2D) 2.3 cm (2.2 - 4.4) RAd ISD 4CH 4.6 cm (3.4 - 4.9) RA (A4C)W 3.1 cm (2.9 - 4.6) IVSd (2D) 1.6 cm (0.6 - 1) LVPWd (2D) 1.3 cm (0.6 - 1) LVIDd (2D) 3.9 cm (3.6 - 5.4) LVIDs (2D) 2.2 cm - LV FS (2D) 44 % (25 - 45) Aortic Annulus 2 cm (1.4 - 2.6) Ao root diameter (2D) 3.2 cm (2.1 - 3.5) Ascending Ao 3.2 cm (2.1 - 3.4) Aortic arch 2.8 cm (1.8 - 3.4) LA dimension (AP) 2D 3.6 cm (2.3 - 3.8) LAd ISD 4CH 4 cm (2.9 - 5.3) LA ISD 4CH W 3.5 cm (2.5 - 4.5) Name Value Normal Range LA ESV BP (A/L) index 35 ml/m2 - Name Value Normal Range MV E-wave Vmax 0.6 m/sec - MV deceleration time 230 msec - MV A-wave Vmax 0.6 m/sec - MV E:A ratio 1 ratio - LV septal e' Vmax 0.05 m/sec - LV lateral e' Vmax 0.07 m/sec - LV E:e' septal ratio 11 ratio - LV E:e' lateral ratio 8 ratio - Name Value Normal Range AV Vmax 1.2 m/sec - AV VTI 24 cm - AV peak gradient 6 mmHg - AV mean gradient 4 mmHg - LVOT Vmax 1.1 m/sec - LVOT VTI 22 cm - LVOT peak gradient 5 mmHg - LVOT mean gradient 3 mmHg - BERTHA Vmax 0.7 m/sec - Name Value Normal Range TR Vmax 2.7 m/sec - TR peak gradient 29 mmHg - RAP 3 mmHg - RVSP 32 mmHg - IVC diameter 2 cm - Name Value Normal Range PV Vmax 0.7 m/sec - PV peak gradient 2 mmHg -
[2018-03-16 16:45] VITALS: BP 142/83
--- NOTE | 2018-03-16 20:24 | CARD ---
CC: Neurology at [facility] * EVENT MONITOR IMPLANTATION NOTE: DATE OF PROCEDURE: 03/16/18 - ROOM #445 PROCEDURE: Event monitor implantation. INDICATION: Cryptogenic stroke, evaluation for atrial fibrillation. The patient is a 72-year-old gentleman who had a TIA suspicious for a cryptogenic event. Event monitor implantation was recommended for monitoring of heart rate. DESCRIPTION OF PROCEDURE: The patient was brought to the procedure area. His anterior chest was prepped and draped in the usual fashion. 1% lidocaine was used for local anesthesia. Event monitor was injected subcutaneously. The patient tolerated the procedure well with no complications. The R-wave was measured at 0.29 millivolts. The patient will be seen in followup in 1 week. [id number]/[facility] #: [id number] [facility]ITAL[facility] Cesar
--- NOTE | 2018-03-16 22:15 | PN ---
PROGRESS NOTE: DATE OF VISIT: 03/16/18 PATIENT OF: NATHAN Bolivar and Dr. Williamson. HISTORY: This is a neurological followup on this 72-year-old man who had a recent bout of aphasia. He repeats his history that he was told he had AFib 4 years ago, but we have not been able to track down the records. His EKGs here; one showed artifact, it was initially read as AFib. But repeat EKGs have not shown it and he had no AFib documented here. He has no new symptoms. PHYSICAL EXAMINATION: Temperature 97.8, pulse 84, respiratory rate 16, blood pressure 151/89. He is alert and oriented with normal speech and comprehension. Cranial nerves II through XII are intact. Motor exam revealed normal tone and strength. Chest: Clear. Cardiovascular: Regular rate and rhythm. This is no evidence at this hospitalization that he has had atrial fibrillation and he has never seen a nursery school attendant for atrial fibrillation and the history is unclear. We are getting a loop recorder to see if he has atrial fibrillation. For now, he will be on antiplatelet medication since there is no clear evidence that he has had atrial fibrillation. He has seen a nursery school attendant for other issues in the past. He will be on Plavix. He has been started on atorvastatin. I will be seeing him back in a few months' time. [id number]/[facility] #: [id number] THIERNO
--- NOTE | 2018-03-17 03:33 | DS ---
DISCHARGE SUMMARY: DATE OF ADMISSION: 03/14/18 DATE OF DISCHARGE: 03/16/18 PRIMARY CARE PROVIDER: Flako Bañuelos NP NEUROLOGIST: Pako Salas MD ATTENDING PROVIDER: Charlie Solis MD * (dictated by NATHAN Bolivar). PRIMARY DIAGNOSES: 1. Aphasia. 2. Headache. SECONDARY DIAGNOSES: 1. Transient ischemic attack in September 2017. 2. Degenerative disk disease. 3. Asthma. 4. Sleep apnea. 5. Recurrent pneumonia. 6. Chronic obstructive pulmonary disease exacerbation with exercise. 7. Gastroesophageal reflux disease. 8. Benign prostatic hyperplasia. 9. Kidney stones. 10. Arthritis. STUDIES WHILE IN THE HOSPITAL: 1. Brain CT, 03/14/18, impression: No intracranial mass or hemorrhages noted. 2. Chest x-ray, 03/14/18, impression: No active cardiopulmonary disease noted. 3. Head CTA, 03/14/18, impression: Minimal atherosclerosis without dissection aneurysm or flow limiting lesions in that extracranial carotid system or vertebral arteries. 4. Brain MRI, 03/15/18, impression: No restricted diffusion to suggest acute infarct, elevated T2/FLAIR signal in the periventricular and subcortical white matter, nonspecific but suggestive of chronic small vessel ischemic change. HISTORY OF PRESENT ILLNESS/HOSPITAL COURSE: Mr. Torres is a 72-year-old male with past medical history as described above who presented to the ER on with a complaint of aphasia followed by a left-sided headache. He received a workup while in the ER that was within normal limits. He had minimal atherosclerosis without dissection or aneurysm or flow limited lesions. CBC, coagulation panel, and CMP were unremarkable. Troponin was negative, and lipid panel revealed triglycerides 276, cholesterol 229, LDL 113, HDL 60.7 this was nonfasting. Fasting lipid panel was triglycerides 235, cholesterol 188, LDL 94 , HDL 47.1. The patient states that he was having aphasia for approximately 1 hour and then it went way without intervention. He then experienced a severe headache that was left-sided and right behind his left eye. The patient states that he had a similar episode in September 2017, where he was driving home from the [place] and he suddenly found it difficult to manage control buttons in his car. Staff at [facility] called the ambulance and he was driven to [facility] for further evaluation. He had multiple tests which were unremarkable. He was admitted and discharged, diagnosis was likely TIA. On March 14, he was admitted to the hospital. Multiple tests were done including brain CT, head and neck CTA, and a brain MRI as well as a bubble echo and multiple EKGs. The results are discussed above. The patient did not experience any symptoms of aphasia or headache while in the hospital. His COPD and BPH remained under control, as did his GERD. The patient was assessed by Neurology. They recommended starting the patient on Plavix and continuation of Plavix x3 months and follow up with Dr. Salas in 3 to 4 months. The patient states that he admits to feeling a "flutter" in his chest from time to time that lasts minutes, but he has not felt this recently. He has been on telemetry the entirety of his hospital stay and has been in normal sinus rhythm the entirety as well. An implantable loop recorder was ordered and placed as the patient states that he may have been told at some point that he had a strange rhythm, this was in 2016 during knee surgery. Reports of this were not obtained, but were requested from [facility]. The patient is discharged with loop recorder in place, 1 month prescription for Plavix, and 1 month prescription for atorvastatin due to recent laboratory work which is described above. Prior to discharge, the patient states he is feeling well. He denies chest pain, shortness of breath, palpitations, headaches, cough, fever, dizziness, lightheadedness, abdominal pain, nausea, vomiting, diarrhea, constipation, extremity pain or weakness and swelling and calf tenderness. Mr. Torres is stable for discharge to home. PHYSICAL EXAM: Vital signs are temperature 97.8, pulse rate 84, respiratory rate 16, oxygen saturation 95, blood pressure 151/89. General: Mr. Torres is a well- developed, well-nourished white man who is ambulating in his room. He sits up in bed for discussion and exam. He appears well and is in no acute distress. HEENT: Visual espinal grossly intact. Pupils equally round and reactive to light and accommodation. Extraocular movements intact. Sclerae without icterus, left sclera hemorrhagic. Hearing grossly intact. Oral mucous membranes moist and without lesions. Pharynx clear. Neck: Full range of motion. Thyroid not palpable. Trachea midline. No lymphadenopathy, nontender to palpation. No carotid bruits upon auscultation. Respiratory: Symmetrical chest expansion. No use of accessory muscle. Lungs: Clear to auscultation. No rhonchi, wheezes or rubs. Cardiovascular: Regular rate and rhythm. S1, S2 present. No murmurs, rubs, or gallops. No JVD. Abdomen: Bowel sounds in all 4 quadrants. Abdomen is soft and nontender to palpation. No bruits appreciated. No hepatosplenomegaly. Musculoskeletal: Full range of motion. No pain or deformities. Extremities: Skin warm and smooth bilaterally. No edema. No clubbing or cyanosis. Radial and pedal pulses palpable. Neuro: Awake, alert, and oriented x3. Moves all extremities. Motor strength is 5/5 in upper and lower extremities bilaterally. Steady gait with no impairment. DISCHARGE PLAN: Mr. Torres will be discharged home. ACTIVITY: As tolerated. DIET: Heart healthy. MEDICATIONS: As above. EDUCATION: 1. Discharge instructions for event monitor have been given to patient. 2. Follow up with Cardiology in approximately 1 week. 3. Follow up with primary care physician in 4 to 7 days. 4. Follow up with Neurology/Dr. Salas in 3 to 4 months. 5. Continue Plavix 75 mg daily x3 months, 1 month supply sent to pharmacy; refer to PCP for refills. 6. Start atorvastatin 20 mg tonight, 1 month supply sent to pharmacy. We discussed potential side effects and followup with PCP regarding refills. 7. Return to the ER or nearest hospital if you experience any worsening of symptoms, shortness of breath, lightheadedness, dizziness, chest discomfort, high fevers, chills, night sweats, loss of consciousness, or any other worrisome sign or symptom. This is a summarized report of a complex medical history and hospital stay. For further details, please see the entire medical record. TIME SPENT: Approximately 35 minutes were spent on this discharge, greater than half of that time spent [id number] with the patient discussing discharge plans and instructions. NATHAN BANKS [id number]/[facility] #: [id number] [place]
[2018-03-17] MEDS ORDERED: Clopidogrel TAB* 75 MG PO SCH (09:00)
== END 2018-03-16 17:26 | disposition home or self-care (01) | DRG 42 ==
LOC: ED 15:27 → MEDTELE 19:37 → OBSVTOIN 03-16 14:25
PROVIDERS: ADMIT Hospitalist; ATTEND Internal Medicine
PROC: 0JH602Z Insertion of Monitoring Device into Chest Subcutaneous Tissue and Fascia, Open Approach (ICD-10-PCS; principal; 2018-03-16 11:30)
DX: G45.9 Transient cerebral ischemic attack, unspecified (principal); J44.9 Chronic obstructive pulmonary disease, unspecified; H11.32 Conjunctival hemorrhage, left eye; R40.2362 Coma scale, best motor response, obeys commands, at arrival to emergency department; R40.2142 Coma scale, eyes open, spontaneous, at arrival to emergency department; R40.2252 Coma scale, best verbal response, oriented, at arrival to emergency department; K21.9 Gastro-esophageal reflux disease without esophagitis; R29.700 NIHSS score 0; Z96.653 Presence of artificial knee joint, bilateral; Z96.0 Presence of urogenital implants; K57.90 Diverticulosis of intestine, part unspecified, without perforation or abscess without bleeding; I10 Essential (primary) hypertension; M19.90 Unspecified osteoarthritis, unspecified site; I48.91 Unspecified atrial fibrillation; M50.30 Other cervical disc degeneration, unspecified cervical region; G47.33 Obstructive sleep apnea (adult) (pediatric); R51 Headache; N40.0 Benign prostatic hyperplasia without lower urinary tract symptoms; Z87.01 Personal history of pneumonia (recurrent); Z87.442 Personal history of urinary calculi; Z86.73 Personal history of transient ischemic attack (TIA), and cerebral infarction without residual deficits; Z85.828 Personal history of other malignant neoplasm of skin; Z86.14 Personal history of Methicillin resistant Staphylococcus aureus infection; Z82.49 Family history of ischemic heart disease and other diseases of the circulatory system; Z79.02 Long term (current) use of antithrombotics/antiplatelets; Z72.89 Other problems related to lifestyle
CPT/HCPCS: 33285; 36415; 70450; 70496; 70498; 70551; 71045; 80048; 80053; 80061; 81003; 83605; 84484; 85025; 85610; 85652; 85730; 87641; 93005; 93306; 94640; 99285; A9270-GY; C1764; G0378; J1644; Q9967

== ENCOUNTER 2019-02-28 06:33 | Day surgery (SDC) | payer MEDICARE ==
[2019-02-28] MEDS ORDERED: Midazolam* 1 MG/ML 2 ML VIAL (2 MG) ONE (07:34)
[2019-02-28 08:43] VITALS: BP 153/82
[2019-02-28] MEDS ORDERED: Cyclopentolate 1% OPTH.SOL* 2 ML BTL ONE (09:09)
[2019-02-28] MEDS ORDERED: acetaZOLAMIDE TAB* 250 MG ONE (09:09)
[2019-02-28] MEDS ORDERED: Neomycin/Polymy/Dex OPHTH.OIN* 3.5 GM ONE (09:09)
[2019-02-28] MEDS ORDERED: Phenylephrine OPHTH SOL 2.5%* 2 ML ONE (09:09)
[2019-02-28] MEDS ORDERED: Tropicamide 1% OPTH.SOL* BTL ONE (09:09)
[2019-02-28] MEDS ORDERED: Tetracaine 0.5% OPTH.SOL 4 ML* 1 DROP BTL ONE (09:09)
[2019-02-28] MEDS ORDERED: Lidocaine 1% MPF ** 5 ML VIAL ONE (09:09)
[2019-02-28] MEDS ORDERED: Ketorolac 0.5% OPHTH (NF) 0.5 % 5 ML BTL ONE (09:09)
[2019-02-28] MEDS ORDERED: Povidone Iodine 5% OPTH* 30 ML BTL ONE (09:09)
--- NOTE | 2019-02-28 15:30 | OP ---
DATE OF OPERATION: 02/28/19 - [facility] DATE OF : 45 SURGEON: Isaias Xie MD ANESTHESIA: Monitored anesthesia care. PREOPERATIVE DIAGNOSIS: Cataract, right eye with astigmatism. POSTOPERATIVE DIAGNOSIS: Cataract, right eye with astigmatism. OPERATIVE PROCEDURE: Extracapsular cataract extraction of the right eye with intraocular lens implant. IMPLANT: SN6AT5 12.5 diopter lens at 1 degree to the right eye. COMPLICATIONS: None. DESCRIPTION OF PROCEDURE: The patient was given phenylephrine 2.5 % and cyclopentolate 1% eye drops to the operative eye in the preoperative area. The patient was sat in the upright position and corneal markings were placed at 0 and 180 degrees to assist toric lens placement. The patient was taken to the operating room where a time-out was taken to identify the correct patient, site , and side of surgery. The patient's right eye was prepped and draped in the usual sterile fashion with 5% Betadine. A second time-out was taken to verify the correct patient, side, and site of surgery and correct lens implant. A lid speculum was placed to the right eye. Corneal markings were then placed at 1 degree Geary with a toric contact lens manufacturer. A 1 mm paracentesis blade was used to make a clear corneal incision in the superotemporal position. Preservative- free 1% lidocaine was injected into the anterior chamber. DisCoVisc was then injected into the anterior chamber. A 2.75 mm keratome blade was used to make a triplanar incision at the inferotemporal position. A cystotome initiated a capsulorrhexis, which was completed with Utrata forceps in a continuous and curvilinear manner. Hydrodissection of the lens was performed with BSS on a cannula. The lens could be spun in the capsular bag. The phacoemulsification handpiece was used with a divide- and-conquer technique to remove the nucleus. The I/A handpiece then removed the residual cortical lens material. ProVisc was then injected to inflate the capsular bag and the ORA system was then used to confirm lens power. The SN6AT5 12.5 diopter lens was then injected into the capsular bag and rotated to 1 degree. The residual ProVisc was then removed from the eye with the I/A handpiece. The corneal incisions were hydrated and no leaks occurred at physiologic pressure around 20 mmHg per palpation. The lens was confirmed to still be at the 1 degree Geary. The lid speculum was removed and drapes were removed. Maxitrol ointment was placed to the surface of the operative eye. An adhesive patch and shield was then placed on the operative eye. The patient was taken to the postoperative area in stable condition. [id number]/[facility] #: [id number] [facility]
== END 2019-02-28 08:19 | disposition home or self-care (01) ==
LOC: OREAST 06:33
PROVIDERS: ATTEND Student in an Organized Health Care Education/Training Program
DX: H25.11 Age-related nuclear cataract, right eye (principal); H52.201 Unspecified astigmatism, right eye; Z85.820 Personal history of malignant melanoma of skin; Z87.442 Personal history of urinary calculi; E78.5 Hyperlipidemia, unspecified; N40.0 Benign prostatic hyperplasia without lower urinary tract symptoms; K21.9 Gastro-esophageal reflux disease without esophagitis; Z86.73 Personal history of transient ischemic attack (TIA), and cerebral infarction without residual deficits; Z79.01 Long term (current) use of anticoagulants
CPT/HCPCS: A9270-GY; J2250; V2787

== ENCOUNTER 2019-03-07 06:20 | Day surgery (SDC) | payer MEDICARE ==
[2019-03-07] MEDS ORDERED: fentaNYL 100 mcg/2 ml 50 MCG/ML VIAL ONE (07:25)
[2019-03-07] MEDS ORDERED: Midazolam 2 mg/2 ml VIAL 1 mg/ml 2 ml VIAL (2 mg) ONE (07:26)
[2019-03-07 08:31] VITALS: BP 141/82
[2019-03-07] MEDS ORDERED: Tropicamide 1% OPTH.SOL BTL ONE (09:43)
[2019-03-07] MEDS ORDERED: Neomycin/Polymy/Dex OPHTH.OIN 3.5 GM ONE (09:43)
[2019-03-07] MEDS ORDERED: Lidocaine 1% MPF 5 ML VIAL ONE (09:43)
[2019-03-07] MEDS ORDERED: Cyclopentolate 1% OPTH.SOL 2 ML BTL ONE (09:43)
[2019-03-07] MEDS ORDERED: Phenylephrine 2.5% OPHTH SOL 2 ml BTL ONE (09:43)
[2019-03-07] MEDS ORDERED: Povidone Iodine 5% OPTH 30 ML BTL ONE (09:43)
[2019-03-07] MEDS ORDERED: Tetracaine 0.5% OPTH.SOL 4 ML BTL ONE (09:43)
[2019-03-07] MEDS ORDERED: Ketorolac 0.5% OPHTH (NF) 0.5 % 5 ML BTL ONE (09:43)
== END 2019-03-07 08:24 | disposition home or self-care (01) ==
LOC: OREAST 06:20
PROVIDERS: ATTEND Student in an Organized Health Care Education/Training Program
DX: H25.12 Age-related nuclear cataract, left eye (principal); H52.202 Unspecified astigmatism, left eye; H35.372 Puckering of macula, left eye; H11.31 Conjunctival hemorrhage, right eye; Z85.820 Personal history of malignant melanoma of skin; Z87.442 Personal history of urinary calculi; G47.33 Obstructive sleep apnea (adult) (pediatric); J45.909 Unspecified asthma, uncomplicated; K21.9 Gastro-esophageal reflux disease without esophagitis; Z86.73 Personal history of transient ischemic attack (TIA), and cerebral infarction without residual deficits